=== PATIENT | female | born 1985 | race Caucasian/White ===

== ENCOUNTER → 2022-12-01 12:54 | Outpatient (REF) | payer BC, SELFPAY | LOC: RAD 12:54 | PROVIDERS: ATTENDING PHYSICIAN Nurse Practitioner | DX: M25.569 Pain in unspecified knee (principal) | CPT/HCPCS: 93971 ==

== ENCOUNTER 2023-06-11 06:27 | Day surgery (SDC) | payer BC, SELFPAY ==
[2023-06-11] VITALS (9 sets, daily range): BP systolic 95–129; BP diastolic 60–96; BMI 30.4
[2023-06-11] MEDS: CELEBREX 200 MG PO (07:41)
[2023-06-11] MEDS: TYLENOL 1000 MG PO (07:42)
[2023-06-11] MEDS: NORMOSOL-R 1000 IV (07:55)
== END 2023-06-11 12:38 | disposition home or self-care (01) ==
LOC: SDS 06:27
PROVIDERS: ATTENDING PHYSICIAN Specialist
DX: S83.242A Other tear of medial meniscus, current injury, left knee, initial encounter (principal); X58.XXXA Exposure to other specified factors, initial encounter; M94.262 Chondromalacia, left knee
CPT/HCPCS: 29882; C1776

== ENCOUNTER → 2023-06-21 13:18 | Outpatient (REF) | payer BC, SELFPAY | LOC: RAD 13:18 | PROVIDERS: ATTENDING PHYSICIAN Physician Assistant; FAMILY PHYSICIAN Nurse Practitioner Adult Health | DX: M79.662 Pain in left lower leg (principal) | CPT/HCPCS: 93971 ==

== ENCOUNTER 2023-06-21 14:55 | Emergency (ER) | payer BC, SELFPAY ==
[2023-06-21 14:58] VITALS: BP 155/102
--- NOTE | 2023-06-21 15:55 | ED.GENMED ---
History of Present Illness
General
Chief Complaint: DVT/Possible Blood Clot
Source: patient
Exam Limitations: none
Time Seen by Provider: 06/21/23 15:45
Nursing documentation reviewed up to this point in time: agreed with
Travel History
Have you had any contact with someone who has COVID-19?: No
Do you have any symptoms of coronavirus? Fever > 100 degrees, chills, cough, shortness of breath, sore throat, loss of taste or smell, muscle aches, or headache?: No
History of Present Illness
History of Present Illness:
37-year-old female presents with left calf pain and a positive outpatient DVT ultrasound. She had a meniscus root repair on 06/[address] Gillespie, she has been nonweightbearing since. She was in an immobilizer for 1 week until 3 days ago when she was
put in a hinged brace with nonweightbearing. She developed left calf pain 5 days ago and has gotten progressively worse. She denies chest pain or trouble breathing.
Also gets severe shooting burning pains anteriorly from knee to foot with any movement, does not occur when still
Outpatient ultrasound radiology report read: IMPRESSION: Left posterior tibial vein occlusive thrombus.
Past History
Past History
ED Past Medical History: Asthma, GERD, Psychiatric (Anxiety) and Other ( 4 para 1 AB 2, polycystic ovarian syndrome)
ED Past Surgical History: Appendectomy and Orthopedic (L Meniscus root repair 06/11/23)
Social History
Tobacco: Non-smoker
Alcohol: None
Personal:
Living: with family
Employment: Employed
Review of Systems
Review of Systems
Allergies reviewed?: Yes
All Other Systems: ROS reviewed and negative except as documented in HPI and ROS
Constitutional: Denies fever
Respiratory: Denies cough or trouble breathing
Cardiac: Denies chest pain
ABD/GI: Denies abdominal pain, nausea or vomiting
Musculoskeletal: Reports other (shooting burning pains left lower leg with movement, pain left calf)
Skin: Reports other (healing left knee surgical sites, ecchymosis)
Neurological: Reports numbness (anterior aspect left lower leg numb when she shaved her legs today); Denies weakness
Phy Exam
Physical Exam
Physical Exam:
GENERAL: No acute distress. A&Ox3.
CONSTITUTIONAL: Afebrile.
RESPIRATORY: Regular respirations, nonlabored, lungs clear.
CARDIOVASCULAR: Regular rate and rhythm, no murmurs, no rubs.
GI: Soft, nontender, normal BS
MUSCULOSKELETAL: LLE knee with mild swelling, old ecchymosis. Calf is tender, no redness or significant swelling. Distal n/v intact. Well perfused.
SKIN: Warm, dry, pink
PSYCH: Normal mood and affect. Well kept, interactive and appropriate
NEUROLOGIC: Awake, alert and oriented. No focal neurological deficits
Course
Orders/Labs/Results
Orders:
Orders
06/21/23 16:08
Complete Blood Count/With Diff Urgent
Comprehensive Metabolic Panel Urgent
06/21/23 16:57
Apixaban [Eliquis] 10 mg PO NOW STA
Gabapentin [Neurontin] 100 mg PO NOW STA
Abnormal Lab Results
06/21/23
16:08
Abs Immat Gran (auto) 0.1 H 10^3/uL
(0-0.05)
Immature Gran % 0.8 H %
(0-0.5)
Lymphocytes % 19.7 L %
(20.5-51.1)
Chloride 97 L mmol/L
(98-107)
BUN 18 H mg/dl
(7-17)
Calcium 10.4 H mg/dl
(8.4-10.2)
06/21/23 16:08
06/21/23 16:08
Vital Signs
Initial and Last Documented VS:
Initial Vital Signs
Temp Pulse Resp BP Pulse Ox
100 F 105 16 155/102 96
06/21/23 14:58 06/21/23 14:58 06/21/23 14:58 06/21/23 14:58 06/21/23 14:58
Last Documented Vital Signs
Temp Pulse Resp BP Pulse Ox
99.3 F 93 22 140/87 97
06/21/23 16:23 06/21/23 18:32 06/21/23 18:32 06/21/23 18:32 06/21/23 17:00
MDM/Problems Addressed
Differential Diagnosis Includes:
DVT, PE
MDM/Problems Addressed:
37-year-old female presents with left calf pain and a positive outpatient DVT ultrasound. She had a meniscus root repair on 06/[address] Gillespie, she has been nonweightbearing since. She was in an immobilizer for 1 week until 3 days ago when she was
put in a hinged brace with nonweightbearing. She developed left calf pain 5 days ago and has gotten progressively worse. She denies chest pain or trouble breathing.
Also gets severe shooting burning pains anteriorly from knee to foot with any movement, does not occur when still
Outpatient ultrasound radiology report read: IMPRESSION: Left posterior tibial vein occlusive thrombus.
06/21/2023 1602 PM
Patient mildly tachycardic, temperature 100.0, mildly hypertensive. Placed on monitor for observation
If her kidney function is normal, we will start her on gabapentin for the severe shooting/burning pain down her left leg
06/21/2023 1656 PM
Heart rate 84, pulse ox 96% room air
CBC normal
CMP normal
Plan: I will prescribe gabapentin for her shooting burning pain in her left lower leg.
Eliquis prescribed for DVT.
*Critical Care Note
Total Time (30-74mins, 75-104mins- exclusive of procedures): Not Applicable
ED Attending Note
-
Portions of this chart may have been created with voice recognition software.� Occasional wrong word or��sound alike� substitutions may have occurred due to the inherent limitations of voice recognition software.
Discharge Plan
Departure
Patient Disposition: Home (Routine Discharge)
Date of Disposition: 06/21/23
Time of Disposition: 16:58
Patient with high blood pressure during this ER visit?: Yes
Condition: Good
Discharge Problem:
DVT (deep venous thrombosis), Neurogenic pain of left lower extremity
Instructions: Deep Vein Thrombosis (Blood Clots in the Legs) (DC), Neuropathic pain, Apixaban, Gabapentin
Prescriptions:
New
Eliquis 5 mg tablet
10 mg PO BID Qty: 70 0RF
Rx Instructions:
10 mg BID for 7 days, then 5 mg BID
gabapentin 100 mg capsule
100 mg PO TID Qty: 30 0RF
No Action
spironolactone 50 MG tablet
50 mg PO HS
melatonin 5 MG tablet
5 mg PO HS
buspirone [BuSpar] 10 mg Tablet
10 mg PO BID
bupropion HCl [Wellbutrin XL] 300 mg Tablet Extended Release 24 Hr
300 mg PO DAILY
metformin 500 mg Tablet
500 mg PO DAILY
Mirena 21 mcg/24 hours (8 yrs) 52 mg Intrauterine Device
1 device INTRAUTERINE ONCE
alprazolam [Xanax] 0.5 mg Tablet
0.5 mg PO PRN PRN (Reason: anxiety)
metformin 1,000 mg Tablet
1,000 mg PO HS
omeprazole 20 mg Tablet,Delayed Release (Dr/Ec)
20 mg PO DAILY
Referrals:
Rosalind Bernal [Other] - Call in 1-3 days for appt
NONE,* [Active] -
Activity Restrictions/Additional Instructions:
As we discussed, I sent a prescription to your pharmacy for gabapentin 100 mg 3 times daily for 10 days
I sent a prescription for Eliquis to your pharmacy also we gave you 1 today, you may take another 1 this evening.
You may also take Tylenol, no Ibuprofen while on Eliquis
Call your family doctor Saturday morning and ask when they want to see you for follow-up. You will eventually need a repeat ultrasound.
Return here immediately for chest pain, trouble breathing or feeling worse in any way.
Interventions
Interventions:
*General Assessment Last Done: 06/21/23 16:24
*ED COVID-19 Vaccine History Last Done: 06/21/23 16:24
*Nursing Disposition Last Done: 06/21/23 18:43
ED- Cardiac Assessment Last Done: 06/21/23 16:24
ED- Pulmonary Assessment Last Done: 06/21/23 16:24
ED-Peripheral Vascular Assessment Last Done: 06/21/23 16:24
ED-Skin Assessment Last Done: 06/21/23 16:24
Discharge Date and Time
Discharge Date/Time: 06/21/23 18:45
[2023-06-21 16:06] VITALS: BP 141/99
[2023-06-21 16:13] LABS: % Basophils 0.4 % (0-2); % Eosinophils 1.9 % (0-6); % Immature Granulocytes 0.8 % (0-0.5); % Lymphocytes 19.7 % (20.5-51.1); % Monocytes 7.6 % (1.7-9.3); % Neutrophils 69.6 % (42.2-75.2); Absolute Eosinophils 0.2 10^3/uL (0-0.7); Absolute Immature Granulocytes 0.1 10^3/uL (0-0.05); Absolute Lymphocytes 1.6 10^3/uL (1.2-3.4); Absolute Monocytes 0.6 10^3/uL (0.1-0.6); Absolute Neutrophils 5.8 10^3/uL (1.4-6.5); Hemoglobin 14.6 g/dL (12.0-16.0); Mean Corp Hgb Conc. 34.8 g/dL (33.0-37.0); Mean Corpuscular Hgb 30.9 pg (27.0-31.0); Mean Platelet Volume 8.9 fL (7.4-10.4); Nucleated Red Blood Cells % 0 %; Platelet Count 249 10^3/uL (130-400); Red Blood Cell Count 4.72 10^6/uL (4.20-5.40); Red Cell Dist. Width 12.7 % (11.5-14.5); White Blood Cell Count 8.3 10^3/uL (4.8-10.8)
[2023-06-21 16:23] LABS: ALT (SGPT) 20 U/L (0-35); AST (SGOT) 24 U/L (14-36); Albumin 4.4 g/dl (3.5-5.0); Alkaline Phosphatase 67 U/L (38-126); Blood Urea Nitrogen 18 mg/dl (7-17); Calcium 10.4 mg/dl (8.4-10.2); Carbon Dioxide 27 mmol/L (22-30); Chloride 97 mmol/L (98-107); Glucose 98 mg/dl (70-99); Potassium 4.5 mmol/L (3.5-5.1); Sodium 135 mmol/L (135-145); Total Bilirubin 0.7 mg/dl (0.2-1.3); Total Protein 7.1 g/dl (6.3-8.2); eGFR > 60.00
[2023-06-21 16:56] VITALS: BP 141/99
[2023-06-21 17:00] VITALS: BP 136/92
[2023-06-21] MEDS: ELIQUIS 10 MG PO (17:10)
[2023-06-21] MEDS: NEURONTIN 100 MG PO (17:10)
[2023-06-21 18:00] VITALS: BP 139/95
[2023-06-21 18:32] VITALS: BP 140/87
== END 2023-06-21 18:45 | disposition home or self-care (01) ==
LOC: EMR 14:55
PROVIDERS: Registered Nurse; EMERGENCY PHYSICIAN Emergency Medicine; FAMILY PHYSICIAN Nurse Practitioner Adult Health
DX: I82.4Z2 Acute embolism and thrombosis of unspecified deep veins of left distal lower extremity (principal); M79.605 Pain in left leg; R03.0 Elevated blood-pressure reading, without diagnosis of hypertension
CPT/HCPCS: 99284; 80053; 85025; 93971

== ENCOUNTER 2023-08-09 06:17 | Outpatient (RCR) | payer BC, SELFPAY | END 2023-08-09 23:59 | disposition home or self-care (01) | LOC: RPT 06:17 | PROVIDERS: ATTENDING PHYSICIAN Specialist; FAMILY PHYSICIAN Nurse Practitioner Adult Health | DX: Z47.89 Encounter for other orthopedic aftercare (principal); Z73.6 Limitation of activities due to disability; R26.2 Difficulty in walking, not elsewhere classified; M62.81 Muscle weakness (generalized); R26.89 Other abnormalities of gait and mobility; M25.562 Pain in left knee | CPT/HCPCS: 97110; 97112; 97140; 97161; 97530 ==

== ENCOUNTER 2023-09-10 06:37 | Outpatient (RCR) | payer BC, SELFPAY | END 2023-09-10 23:59 | disposition home or self-care (01) | LOC: RPT 06:37 | PROVIDERS: ATTENDING PHYSICIAN Specialist; FAMILY PHYSICIAN Nurse Practitioner Adult Health | DX: Z47.89 Encounter for other orthopedic aftercare (principal); Z73.6 Limitation of activities due to disability; R26.2 Difficulty in walking, not elsewhere classified; M62.81 Muscle weakness (generalized); M25.562 Pain in left knee | CPT/HCPCS: 97110; 97112; 97530 ==

== ENCOUNTER → 2023-09-18 12:47 | Outpatient (REF) | payer BC, SELFPAY | LOC: RAD 12:47 | PROVIDERS: ATTENDING PHYSICIAN Nurse Practitioner Adult Health | DX: I82.422 Acute embolism and thrombosis of left iliac vein (principal) | CPT/HCPCS: 93971 ==

== ENCOUNTER 2023-10-09 19:11 | Outpatient (RCR) | payer BC, SELFPAY | END 2023-10-09 23:59 | disposition home or self-care (01) | LOC: RPT 19:11 | PROVIDERS: ATTENDING PHYSICIAN Specialist; FAMILY PHYSICIAN Nurse Practitioner Adult Health | DX: M76.61 Achilles tendinitis, right leg (principal); Z98.890 Other specified postprocedural states; Z73.6 Limitation of activities due to disability; R26.2 Difficulty in walking, not elsewhere classified | CPT/HCPCS: 97110; 97112; 97140; 97530 ==

== ENCOUNTER 2023-10-23 19:13 | Outpatient (RCR) | payer BC, SELFPAY | END 2023-10-23 23:59 | disposition home or self-care (01) | LOC: RPT 19:13 | PROVIDERS: ATTENDING PHYSICIAN Specialist; FAMILY PHYSICIAN Nurse Practitioner Adult Health | DX: M76.61 Achilles tendinitis, right leg (principal); Z73.6 Limitation of activities due to disability; Z98.890 Other specified postprocedural states | CPT/HCPCS: 97110 ==

== ENCOUNTER → 2023-10-27 10:06 | Outpatient (REF) | payer BC, SELFPAY | LOC: RAD 10:06 | PROVIDERS: ATTENDING PHYSICIAN Physician Assistant | DX: M25.571 Pain in right ankle and joints of right foot (principal); M79.671 Pain in right foot | CPT/HCPCS: 73610; 73650 ==

== ENCOUNTER → 2024-01-10 07:04 | Outpatient (REF) | payer BC, SELFPAY ==
[2024-01-10 07:53] LABS: % Basophils 0.4 % (0-2); % Eosinophils 2.1 % (0-6); % Immature Granulocytes 0.9 % (0-0.5); % Lymphocytes 32.1 % (20.5-51.1); % Neutrophils 58.5 % (42.2-75.2); Absolute Eosinophils 0.2 10^3/uL (0-0.7); Absolute Immature Granulocytes 0.1 10^3/uL (0-0.05); Absolute Lymphocytes 2.2 10^3/uL (1.2-3.4); Absolute Monocytes 0.4 10^3/uL (0.1-0.6); Absolute Neutrophils 4.1 10^3/uL (1.4-6.5); Hematocrit 42.2 % (37.0-47.0); Hemoglobin 14.5 g/dL (12.0-16.0); Mean Corp Hgb Conc. 34.4 g/dL (33.0-37.0); Mean Corpuscular Hgb 30.9 pg (27.0-31.0); Mean Platelet Volume 8.8 fL (7.4-10.4); Nucleated Red Blood Cells % 0 %; Platelet Count 260 10^3/uL (130-400); Red Blood Cell Count 4.69 10^6/uL (4.20-5.40); Red Cell Dist. Width 13.1 % (11.5-14.5)
[2024-01-10 08:08] LABS: ALT (SGPT) 23 U/L (0-35); AST (SGOT) 22 U/L (14-36); Alkaline Phosphatase 65 U/L (38-126); Blood Urea Nitrogen 21 mg/dl (7-17); Calcium 10.2 mg/dl (8.4-10.2); Carbon Dioxide 29 mmol/L (22-30); Chloride 101 mmol/L (98-107); Glucose 102 mg/dl (70-99); HDL Cholesterol 49 mg/dl; LDL Cholesterol, Calculated 107 mg/dl; Potassium 4.8 mmol/L (3.5-5.1); Sodium 141 mmol/L (135-145); Total Bilirubin 0.5 mg/dl (0.2-1.3); Total Cholesterol 180 mg/dl (50-199); Total Protein 7.4 g/dl (6.3-8.2); Triglyceride 122 mg/dl (10-149); Very Low Density Lipoprotein 24 mg/dl (0-30); eGFR > 60.00
[2024-01-10 08:40] LABS: TSH Reflex To Free T4 0.65 uIU/ml (0.47-4.68)
[2024-01-10 09:39] LABS: Glycohemoglobin (HgbA1c) 5.3 % (4.0-5.6)
[2024-01-11 16:50] LABS: Insulin, Random 16 uIU/mL
== END ==
LOC: REG 07:04
PROVIDERS: ATTENDING PHYSICIAN Nurse Practitioner Adult Health
DX: E28.2 Polycystic ovarian syndrome (principal); Z79.899 Other long term (current) drug therapy; Z13.29 Encounter for screening for other suspected endocrine disorder; Z00.00 Encounter for general adult medical examination without abnormal findings
CPT/HCPCS: 80053; 80061; 83036; 83525; 84443; 85025

== ENCOUNTER → 2024-02-28 13:38 | Outpatient (REF) | payer BC, SELFPAY ==
[2024-02-28 16:09] LABS: Urine Albumin Negative (Neg - Trace); Urine Bilirubin Negative (Negative); Urine Character Clear (Clear); Urine Color Yellow; Urine Glucose Negative (Negative); Urine Ketone Negative (Negative); Urine Leukocyte Negative (Negative); Urine Nitrite Negative (Negative); Urine Occult Blood Negative (Negative); Urine Urobilinogen Negative (Neg - 1+)
[2024-02-28 16:19] LABS: Creatine Phosphokinase 74 U/L (30-135)
[2024-02-28 16:23] LABS: C-Reactive Protein < 5.00 mg/L (0.0-10.00)
[2024-02-28 16:39] LABS: Vitamin D, 25-OH*** 41.5 ng/mL (30-80)
[2024-02-28 16:45] LABS: Erythrocyte Sed Rate 15 mm/hour (0-20)
[2024-02-28 17:15] LABS: Protein/creatinine Ratio 0.3; Urine Protein 9 mg/dl
[2024-02-28 17:23] LABS: Rheumatoid Agglutinin Less Than 10 IU (<10 IU)
[2024-03-02 07:27] LABS: Complement C3 154 mg/dl (88-165)
[2024-03-02 09:22] LABS: ANA, IgG Reflex to HEp-2 None Detected (None Detected)
== END ==
LOC: HWLAB 13:38
PROVIDERS: ATTENDING PHYSICIAN Student in an Organized Health Care Education/Training Program; FAMILY PHYSICIAN Nurse Practitioner Adult Health
DX: F41.9 Anxiety disorder, unspecified (principal); H04.123 Dry eye syndrome of bilateral lacrimal glands; M54.50 Low back pain, unspecified; M77.51 Other enthesopathy of right foot and ankle; R52 Pain, unspecified; R53.82 Chronic fatigue, unspecified; R76.9 Abnormal immunological finding in serum, unspecified; Z87.42 Personal history of other diseases of the female genital tract
CPT/HCPCS: 36415; 81003; 82306; 82550; 82570; 84156; 85610; 85613; 85652; 85730; 86038; 86140; 86146; 86147; 86160; 86235; 86430

== ENCOUNTER 2024-06-19 06:35 | Day surgery (SDC) | payer BC, SELFPAY | END 2024-06-19 10:22 | disposition home or self-care (01) | LOC: GI 06:35 | PROVIDERS: ATTENDING PHYSICIAN Internal Medicine Gastroenterology | DX: R12 Heartburn (principal); K44.9 Diaphragmatic hernia without obstruction or gangrene; K22.2 Esophageal obstruction; K21.00 Gastro-esophageal reflux disease with esophagitis, without bleeding | CPT/HCPCS: 43239; 88305 ==

== ENCOUNTER 2024-12-07 15:55 | Emergency (ER) | payer BC, SELFPAY ==
[2024-12-07 16:06] VITALS: BP 164/100
--- NOTE | 2024-12-07 17:40 | ED.GENMED ---
History of Present Illness
General
Chief Complaint: Numbness
Time Seen by Provider: 12/07/24 16:58
History of Present Illness
History of Present Illness:
39-year-old female with history of asthma and PCOS presents to the emergency department for evaluation of left arm paresthesias that began while running earlier today. They have been persistent for approximately 4 hours. She denies any objective
motor weakness or true sensory deficit to palpation. She notes that she has had the symptoms intermittently occurring to both right upper and left upper extremities for the past several months. She also notes an intention tremor to the left upper
extremity that has been occurring intermittently for approximately 6 months. Also notes occasional positional headaches when lying supine. No visual changes or night sweats/weight loss
Past History
Past History
ED Past Medical History: Asthma, GERD, Psychiatric (Anxiety) and Other ( 4 para 1 AB 2, polycystic ovarian syndrome)
ED Past Surgical History: Appendectomy and Orthopedic (L Meniscus root repair 06/11/23)
Social History
Tobacco: Non-smoker
Alcohol: None
Personal:
Living: with family
Employment: Employed
Review of Systems
Review of Systems
Allergies reviewed?: Yes
All Other Systems: ROS reviewed and negative except as documented in HPI and ROS
Phy Exam
Physical Exam
Physical Exam:
GEN: Well appearing, NAD, WDWN
HEENT: Oral mucosa moist, no scleral icterus
Cardiac: Regular rate
Lung: No respiratory distress, no tachypnea
MSK: No gross deformity or injuries
Skin: Good color, no pallor or jaundice, no rashes
Neuro: AO x3, moves all extremities freely. Left upper extremity strength is 5 out of 5 in all mays and sensation is intact to light touch globally
Psych: Calm, cooperative
Course
Orders/Labs/Results
Orders:
Orders
12/07/24 17:43
BARRY, IgG Reflex to HEp-2 [S] Urgent
B12 [Vitamin B12] Urgent
ESR [Erythrocyte Sed Rate] Urgent
Ferritin Urgent
Comment: ADD ON
Folate Urgent
TSH Reflex To Free T4 Urgent
Vitamin D, 25-OH Urgent
12/07/24 18:12
Add On- LAB Urgent
Tests Added?: ferritin
Vital Signs
Initial and Last Documented VS:
Initial Vital Signs
Temp Pulse Resp BP Pulse Ox
99.5 F 100 16 164/100 98
12/07/24 16:06 12/07/24 16:06 12/07/24 16:06 12/07/24 16:06 12/07/24 16:06
Last Documented Vital Signs
Temp Pulse Resp BP Pulse Ox
99.5 F 100 16 164/100 98
12/07/24 16:06 12/07/24 16:06 12/07/24 16:06 12/07/24 16:06 12/07/24 17:43
MDM/Problems Addressed
MDM/Problems Addressed:
Case discussed with neurology on-call, agree that there is no need for ED and inpatient workup. More concerning given the duration of her symptoms this could represent a demyelinating condition. Labs sent at the request of neuro, will write orders
for outpatient brain and cervical spine MRI
*Pulse Oximetry
SaO2: 98
Oxygen Mode of Delivery: Room air
Patient hypoxic: no
*Critical Care Note
Total Time (30-74mins, 75-104mins- exclusive of procedures): Not Applicable
ED Attending Note
-
Portions of this chart may have been created with voice recognition software.� Occasional wrong word or��sound alike� substitutions may have occurred due to the inherent limitations of voice recognition software.
Discharge Plan
Departure
Patient Disposition: Home (Routine Discharge)
Date of Disposition: 12/07/24
Time of Disposition: 17:59
Patient with high blood pressure during this ER visit?: No
Discharge Problem:
Arm paresthesia, left
Instructions: Peripheral Neuropathy (DC)
Prescriptions:
No Action
spironolactone 50 MG tablet
50 mg PO HS
melatonin 5 MG tablet
5 mg PO HS
buspirone [BuSpar] 10 mg Tablet
10 mg PO BID
bupropion HCl [Wellbutrin XL] 300 mg Tablet Extended Release 24 Hr
300 mg PO DAILY
metformin 500 mg Tablet
500 mg PO DAILY
Mirena 21 mcg/24 hours (8 yrs) 52 mg Intrauterine Device
1 device INTRAUTERINE ONCE
alprazolam [Xanax] 0.5 mg Tablet
0.5 mg PO PRN PRN (Reason: anxiety)
metformin 1,000 mg Tablet
1,000 mg PO HS
omeprazole 20 mg Tablet,Delayed Release (Dr/Ec)
20 mg PO DAILY
Eliquis 5 mg tablet
10 mg PO BID Qty: 70 0RF
Rx Instructions:
10 mg BID for 7 days, then 5 mg BID
gabapentin 100 mg capsule
100 mg PO TID Qty: 30 0RF
Activity Restrictions/Additional Instructions:
Obtain MRI and follow up with neurology based on results
Interventions
Interventions:
*Risk Screen - Suicide Last Done: 12/07/24 16:06
*General Assessment Last Done: 12/07/24 17:39
*Neglect/Abuse Screening Last Done: 12/07/24 16:06
*ED- Fall Risk Assessment Last Done: 12/07/24 17:39
*ED COVID-19 Vaccine History Last Done: 12/07/24 17:39
*Nursing Disposition Last Done: 12/07/24 18:32
ED- Neurological Assessment Last Done: 12/07/24 17:39
Discharge Date and Time
Discharge Date/Time: 12/07/24 18:43
Print Language: IRISH
[2024-12-07 18:36] LABS: Vitamin D, 25-OH*** 36.4 ng/mL (30-80)
[2024-12-07 19:15] LABS: Ferritin 39.2 ng/ml (6.24-137)
[2024-12-07 19:26] LABS: Folate 15.2 ng/ml (2.76-20); Vitamin B12 653 pg/ml (239-931)
== END 2024-12-07 18:43 | disposition home or self-care (01) ==
LOC: EMR 15:55
PROVIDERS: Physician Assistant; EMERGENCY PHYSICIAN Emergency Medicine; FAMILY PHYSICIAN Nurse Practitioner Adult Health
DX: R20.2 Paresthesia of skin (principal); J45.909 Unspecified asthma, uncomplicated; E28.2 Polycystic ovarian syndrome; F41.9 Anxiety disorder, unspecified; Z90.49 Acquired absence of other specified parts of digestive tract
CPT/HCPCS: 99283; 82306; 82607; 82728; 82746; 84443; 85652; 86038

== ENCOUNTER → 2024-12-24 07:37 | Outpatient (REF) | payer BC, SELFPAY | LOC: MRI 3T 07:37 | PROVIDERS: ATTENDING PHYSICIAN Physician Assistant; FAMILY PHYSICIAN Nurse Practitioner Adult Health | DX: R20.2 Paresthesia of skin (principal) | CPT/HCPCS: 70553; 72156; A9575 ==

== ENCOUNTER → 2024-12-29 06:55 | Outpatient (REF) | payer BC, SELFPAY ==
[2024-12-29 08:30] LABS: Cortisol, Random 9.7 ug/dl
[2024-12-31 03:37] LABS: IGF-1 Z Score Calculation 1.3
== END ==
LOC: REG 06:55
PROVIDERS: ATTENDING PHYSICIAN Nurse Practitioner Adult Health
DX: D35.2 Benign neoplasm of pituitary gland (principal)
CPT/HCPCS: 36415; 82024; 82533; 82627; 83003; 83525; 84146; 84270; 84305; 84402; 84403

== ENCOUNTER → 2025-01-06 09:21 | Outpatient (REF) | payer BC, SELFPAY ==
[2025-01-06 11:18] LABS: FSH 6.3 mIU/ml
[2025-01-06 11:32] LABS: TSH 0.97 uIU/ml (0.47-4.68)
[2025-01-07 19:10] LABS: Total T3 (Sendout) 134 ng/dL (80-200)
== END ==
LOC: REG 09:21
PROVIDERS: ATTENDING PHYSICIAN Nurse Practitioner; FAMILY PHYSICIAN Nurse Practitioner Adult Health
DX: E23.7 Disorder of pituitary gland, unspecified (principal)
CPT/HCPCS: 36415; 82670; 83001; 83002; 84439; 84443; 84480

== ENCOUNTER → 2025-01-12 16:35 | Outpatient (REF) | payer BC, SELFPAY | LOC: MRI 3T 16:35 | PROVIDERS: ATTENDING PHYSICIAN Nurse Practitioner Adult Health | DX: D35.2 Benign neoplasm of pituitary gland (principal) | CPT/HCPCS: 70553; A9575 ==

== ENCOUNTER → 2025-01-13 09:24 | Outpatient (REF) | payer BC, SELFPAY ==
[2025-01-13 10:46] LABS: Hematocrit 40.4 % (37.0-47.0); Hemoglobin 13.5 g/dL (12.0-16.0); Mean Corp Hgb Conc. 33.4 g/dL (33.0-37.0); Mean Corpuscular Volume 88.6 fL (81.0-99.0); Nucleated Red Blood Cells % 0 %; Platelet Count 263 10^3/uL (130-400); Red Cell Dist. Width 13.2 % (11.5-14.5)
[2025-01-13 11:10] LABS: Glycohemoglobin (HgbA1c) 5.5 % (4.0-5.6)
[2025-01-13 11:16] LABS: ALT (SGPT) 29 U/L (0-35); AST (SGOT) 18 U/L (14-36); Albumin 4.6 g/dl (3.5-5.0); Alkaline Phosphatase 65 U/L (38-126); Blood Urea Nitrogen 25 mg/dl (7-17); Calcium 9.8 mg/dl (8.4-10.2); Carbon Dioxide 28 mmol/L (22-30); Chloride 105 mmol/L (98-107); Glucose 94 mg/dl (70-99); HDL Cholesterol 49 mg/dl; LDL Cholesterol, Calculated 100 mg/dl; Potassium 5.0 mmol/L (3.5-5.1); Sodium 140 mmol/L (135-145); Total Protein 7.0 g/dl (6.3-8.2); Very Low Density Lipoprotein 19 mg/dl (0-30); eGFR > 60.00
== END ==
LOC: REG 09:24
PROVIDERS: ATTENDING PHYSICIAN Nurse Practitioner; FAMILY PHYSICIAN Nurse Practitioner Adult Health
DX: Z79.899 Other long term (current) drug therapy (principal); Z13.29 Encounter for screening for other suspected endocrine disorder; Z00.00 Encounter for general adult medical examination without abnormal findings; R73.01 Impaired fasting glucose; E23.7 Disorder of pituitary gland, unspecified
CPT/HCPCS: 36415; 80053; 80061; 81050; 82024; 82530; 83036; 85025

== ENCOUNTER → 2025-01-29 07:01 | Outpatient (REF) | payer BC, SELFPAY ==
[2025-01-29 08:15] LABS: AST (SGOT) 22 U/L (14-36); Albumin 5.0 g/dl (3.5-5.0); Blood Urea Nitrogen 23 mg/dl (7-17); Calcium 10.4 mg/dl (8.4-10.2); Carbon Dioxide 29 mmol/L (22-30); Chloride 105 mmol/L (98-107); Glucose 102 mg/dl (70-99); Total Protein 7.6 g/dl (6.3-8.2); eGFR > 60.00
[2025-01-29 08:22] LABS: ALT (SGPT) 35 U/L (0-35); Alkaline Phosphatase 61 U/L (38-126); Potassium 5.3 mmol/L (3.5-5.1); Sodium 139 mmol/L (135-145)
[2025-01-29 08:33] LABS: FSH 1.6 mIU/ml
[2025-01-29 08:46] LABS: TSH 0.66 uIU/ml (0.47-4.68)
[2025-01-29 08:48] LABS: Cortisol, Random 12.6 ug/dl
== END ==
LOC: REG 07:01
PROVIDERS: ATTENDING PHYSICIAN Nurse Practitioner Family; FAMILY PHYSICIAN Nurse Practitioner Adult Health
DX: D35.2 Benign neoplasm of pituitary gland (principal)
CPT/HCPCS: 36415; 80053; 82024; 82533; 82670; 83001; 83002; 84146; 84403; 84439; 84443

== ENCOUNTER → 2025-02-04 07:03 | Outpatient (REF) | payer BC, SELFPAY ==
[2025-02-04 10:48] LABS: Cortisol, Random 4.8 ug/dl
== END ==
LOC: REG 07:03
PROVIDERS: ATTENDING PHYSICIAN Nurse Practitioner Family; FAMILY PHYSICIAN Nurse Practitioner Adult Health
DX: E27.0 Other adrenocortical overactivity (principal)
CPT/HCPCS: 36415; 82024; 82533